=== PATIENT | female | born 1960 | race Caucasian/White ===

== ENCOUNTER → 2017-02-05 | Outpatient (CLI) | payer OTHER | LOC: CIMAGING 15:12 | PROVIDERS: ATTEND Family Medicine | DX: M17.0 Bilateral primary osteoarthritis of knee (principal) | CPT/HCPCS: 73562-PO ==

== ENCOUNTER → 2017-04-02 | Day surgery (SDC) | payer OTHER ==
[~2017-04-02] MED LIST: BUPIVACAINE 0.5% 30 ML SDV ONE; DEXAMETHASONE 4 MG/ML VIAL ONE; HYDROCODONE/APAP 5/325 TAB PO PRN; KETOROLAC 30 MG/1 ML SDV ONE; LIDOCAINE 2% 5 ML SDV ONE; LR 500 ML IV PRN; MIDAZOLAM 2 MG/2 ML VIAL IVP ONE; NALOXONE HCL 0.4 MG/ML INJ IVP PRN; ONDANSETRON 4 MG/2 ML VIAL ONE; PROMETHAZINE HCL 25 MG/ML INJ IVP PRN; PROPOFOL/EMULSION 500 MG/50 ML BOTTLE IV ONE; ceFAZolin 2 GM/DEXTROSE 100 ML IV ONE; epHEDrine SULFATE 10 MG/ML SYR ONE; fentaNYL 100 MCG/2 ML INJ IVP PRN; fentaNYL 100 MCG/2 ML INJ ONE
--- NOTE | 2017-04-02 07:39 | PDHPUP ---
History & Physical Update H&P update statement: This history and physical update is based on an assessment of the patient which was completed after admission or registration (within 24 hours), but prior to the surgery/procedure. H&P update: no change in patient's condition since H&P completed
--- NOTE | 2017-04-02 07:44 | POSTOPPROG ---
Post Op Note Date of Operation: 04/02/17 Surgeon: Gee Sargent Anesthesiologist: Nas Anesthesia: LMA Pre-op Diagnosis: Right Basal Thumb Arthritis Post-op Diagnosis: Same Indication: Pain and limited motion Procedure: Right thumb tendon interposition arthroplasty Findings: arthritis Inf/Abcess present in the surg proc area at time of surgery?: No Depth: Deep Incisional (Fascial) EBL: Minimal Total fluids administered: 700cc Complications: None Specimen(s): none
--- NOTE | 2017-04-02 08:11 | PDANEPAE ---
ANE Past Medical History - Cardiovascular History Hx Hypertension: No Hx Arrhythmias: No Hx Chest Pain: No Hx Coronary Artery / Peripheral Vascular Disease: No Hx CHF / Valvular Disease: No Hx Palpitations: No - Pulmonary History Hx COPD: No Hx Asthma/Reactive Airway Disease: Yes Hx Recent Upper Respiratory Infection: No Hx Oxygen in Use at Home: No Hx Sleep Apnea: No - Neurologic History Hx Cerebrovascular Accident: No Hx Seizures: No Hx Dementia: No - Neurological & Psychiatric Hx Neurological / Psychiatric History Comment: ADHD ANE Patient History - Allergies Allergies/Adverse Reactions: latex Allergy (Verified 04/02/17 07:48) - Home Medications Home Medications: Adderall 10 mg Tablet 04/02/17 [Last Taken 04/01/17 08:00] Bupropion HCl 04/02/17 [Last Taken 04/01/17 08:00] - NPO status NPO Since - Liquids (Date): 04/01/17 NPO Since - Liquids (Time): 21:30 NPO Since - Solids (Date): 04/01/17 NPO Since - Solids (Time): 21:30 ANE Labs/Vital Signs - Vital Signs Blood Pressure: 140/95 Heart Rate: 77 Respiratory Rate: 16 O2 Sat (%): 95 Height: 172.72 cm Weight: 84.368 kg ANE Physical Exam - Airway Neck exam: FROM Mallampati Score: Class 1 Mouth exam: normal dental/mouth exam - Pulmonary Pulmonary: no respiratory distress - Cardiovascular Cardiovascular: regular rate and rhythym - ASA Status ASA Status: II ANE Anesthesia Plan Anesthesia Plan: GA w LMA
--- NOTE | 2017-04-02 09:40 | POSTANESTH ---
Post Anesthetic Evaluation Cardiovascular Status: Normal, Stable Respiratory Status: Normal, Stable Level of Consciousness/Mental Status: Can Participate in Eval Pain Control: Adequate, Prn Tx Ordered Nausea/Vomiting Control: Adequate, Prn Tx Ordered Complications Possibly Related to Anesthesia: None Noted
[2017-04-02 10:09] VITALS: TEMP 97.9
[2017-04-02 10:17] VITALS: BP 118/70; RESP 16; O2SAT 97
[2017-04-02 10:33] VITALS: PULSE 66
--- NOTE | 2017-04-02 11:01 | GOP ---
[f rep st] OPERATIVE REPORT DATE OF OPERATION: SURGEON: Gee Sargent MD PREOPERATIVE DIAGNOSIS: Right basal thumb arthritis and also right palmar radial wrist ganglion cys t. POSTOPERATIVE DIAGNOSIS: Right basal thumb arthritis and also right palmar radial wrist ganglion cy st with ruptured volar collateral ligament. PROCEDURE PERFORMED: Right thumb trapezial excision, tendon interposition arthroplasty, volar colla teral ligament reconstruction and excision of right palmar radial wrist ganglion cyst. FINDINGS: INDICATIONS: This patient had pain on both the palmar as well as the radial aspect of the wrist and was found to have advanced arthritic change at the thumb carpometacarpal joint, but also had a palm ar radial wrist ganglion cyst which was interfering with motion and also was tender on palpation. I t was felt that excision of the ganglion cyst should be done at the same time. DESCRIPTION OF PROCEDURE: Under general anesthesia, the patient's right arm was prepped and draped in the usual fashion. Arm tourniquet applied at 250 mmHg. An L-shaped incision was made longitudin ally from the base of the thumb metacarpal back to the radial styloid, and then palmarly and ulnarly , the total length was 3 inches. Skin and subcutaneous tissue was reflected. Branches of the radia l nerve, the radial artery, associated veins and the extensor pollicis brevis and the abductor polli cis longus tendons were both mobilized and reflected. The periosteum and capsule were elevated from the triscaphoid joint and the carpometacarpal joint, and those joints were inspected. Triscaphoid joint was in pretty good condition with only minor chondromalacic change between the trapezium and s caphoid, but the interval between trapezium and base of thumb metacarpal showed advanced arthritic c hange with complete articular cartilage loss in a couple of areas and also bone spurs and beak area loose fragments. The trapezium was morcellized and excised with a bone rongeur. Beak area bone spu r and loose fragment were excised, and volar collateral ligament was found to be absent. The abduct or pollicis longus tendon was followed up to the distal 3rd of the forearm and was transected at the musculotendinous junction, leaving only 1 slip intact, and then the tendon was passed down to the b ase of the thumb metacarpal through an arthrotomy in the capsule around the FCR tendon and through t he dorsal capsule. This reconstructed the volar collateral ligament. Then the tendon slip was wove n back and forth through the capsule, and capsular tissue was imbricated into the space created by t rapezial excision, and once there was a nice pad of tendon and capsular tissue between the base of t he thumb metacarpal and the distal pole scaphoid, sutures were placed locking those tissues together . Periosteum was closed at the base of the thumb metacarpal and also capsule closed at the triscaph oid area. The stability of the thumb was tested and found to be excellent. Range of motion was smo oth with no crepitation. Attention was turned to the palmar radial aspect of the wrist, and with el evation of the skin and dissection of soft tissue, the ganglion cyst was identified. Radial artery was protected, and the cyst was excised from under the FCR tendon. This extended along the course o f the tendon for a short distance and entered the radiocarpal joint at the radioscaphoid interval. The cyst was typical in appearance and content and was not sent to Pathology for evaluation. No ot er pathology was identified in that area. The radioscaphoid interval appeared normal with smooth sl iding surface. The wound was irrigated profusely with body temperature saline. Skin closed with ho rizontal mattress sutures of 5-0 Prolene, and then a bulky soft pressure dressing was applied follow ed by fiberglass thumb spica splint held in place with an Jitendra bandage. She tolerated the procedure well. There were no complications. She was brought from the operating room to recovery room in goo d condition, given detailed postoperative instructions prior to discharge. A prescription for Perco cet and Keflex was provided. She had been given 1 g of Ancef prior to commencement of surgery. Fol lowup arrangements in the office for about a week postop for dressing and suture removal and cast ap plication for 3 additional weeks. /[id number]/MODL
== END | disposition home or self-care (01) ==
LOC: FSGY 07:32
PROVIDERS: ATTEND Specialist
PROC: 0PTM0ZZ Resection of Right Carpal, Open Approach (ICD-10-PCS; principal; 2017-04-02 07:30)
PROC: 0JR Subcutaneous Tissue and Fascia, Replacement (ICD-10-PCS; principal; 2017-04-02 07:30)
PROC: 0LB70ZZ Excision of Right Hand Tendon, Open Approach (ICD-10-PCS; principal; 2017-04-02 07:30)
DX: M18.11 Unilateral primary osteoarthritis of first carpometacarpal joint, right hand (principal); M67.431 Ganglion, right wrist; S63.641S Sprain of metacarpophalangeal joint of right thumb, sequela
CPT/HCPCS: J0690; J1100; J1885; J2250; J2405; J2704; J3010

== ENCOUNTER 2018-03-02 17:27 | Emergency (ER) | payer OTHER ==
[2018-03-02] MEDS ORDERED: NS 1,000 ML IV ONE (17:42)
--- NOTE | 2018-03-02 17:59 | EDPHY ---
HPI/HX/ROS/PE/MDM Narrative: CHIEF COMPLAINT: RUQ pain HPI: The patient is a 57 y/o female complaining of intermittent RUQ abdominal pain and belching for the last 3 days. She was treated for a bladder infection with Bactrim two weeks ago and felt good for the last week. Her abdominal pain returned on Friday, 3 days ago, and her PCP started her on Macrobid suspecting ongoing UTI. She continued to feel poor Friday night and followed up with her PCP on Friday who performed labs and sent her urine for culture, but she has not received those results yet. She describes her pain as "achy" in quality and primarily located in her RUQ, though at times she notices it on the left side as well. She feels like she is belching frequently and is nauseated mostly in the mornings. She cannot identify obvious aggravating or alleviating factors. She denies fever, vomiting, diarrhea, cough, flank pain. REVIEW OF SYSTEMS: Aside from elements discussed in the HPI, a comprehensive 10-point review of systems was reviewed and is negative. PMH: Asthma, eye surgery, endoscopy/colonoscopy ~2yrs ago for unclear reasons SOCIAL HISTORY: Lives in [place]. Employed. Single. PHYSICAL EXAM: General:Patient is alert, in no acute distress. ENT:Eyes are normal to inspection. ENT inspection normal. Neck: Normal inspection. Full range of motion. Respiratory:No respiratory distress. Breath sounds normal bilaterally. Cardiovascular: Regular rate and rhythm. Strong peripheral pulses. Normal cap refill. Abdomen:The abdomen has diffuse mild tenderness to palpation. There are no peritoneal signs. Back: Normal to inspection. No tenderness to palpation. Skin: Normal color. No rash. Warm and dry. Extremities: Normal appearance. Full range of motion. Neuro: Oriented x3. Normal motor function. Normal sensory function. ED Course: This is a 57 y/o female who presents with intermittent RUQ pain, nausea, and belching for the last 3 days in the setting of recent antibiotic treatment for a UTI. She has mild diffuse abdominal tenderness on exam and is afebrile here. Plan for IV, labs, abdominal US. Patient declined pain medication at this time. 1L IV NS ordered. US is negative. Labs unremarkable. Reassessed patient and discussed findings. Exam remains unchanged. She's unsure if she'd like to pursue CT imaging tonight. UA ordered. Patient has decided not to have an abdominal CT performed tonight. Her urine has been sent for culture. She plans to follow up with her PCP this week. Standard abdominal pain discharge instructions provided. She is comfortable with plan for discharge. - Data Points Imaging Results: Imaging Impressions Abdomen Ultrasound 03/02/18 18:38 Impression: Negative right upper quadrant ultrasound. Results called and discussed with Gee Hough MD on 03/02/2018 at 19:53. Imaging: Discussed imaging studies w/ call center representative Radiologist Laboratory Results: Laboratory Results 03/02/18 18:14 03/02/18 18:14 03/02/18 03/02/18 03/02/18 19:40 18:14 18:14 WBC 8.24 10^3/uL 10^3/uL (3.80-9.50) RBC 4.35 10^6/uL 10^6/uL (4.18-5.33) Hgb 12.7 g/dL g/dL (12.6-16.3) Hct 37.8 % L % (38.0-47.0) MCV 86.9 fL fL (81.5-99.8) MCH 29.2 pg pg (27.9-34.1) MCHC 33.6 g/dL g/dL (32.4-36.7) RDW 13.5 % % (11.5-15.2) Plt Count 342 10^3/uL 10^3/uL (150-400) MPV 8.9 fL fL (8.7-11.7) Neut % (Auto) 67.3 % % (39.3-74.2) Lymph % (Auto) 22.7 % % (15.0-45.0) [place] % (Auto) 8.0 % % (4.5-13.0) Eos % (Auto) 1.2 % % (0.6-7.6) Baso % (Auto) 0.6 % % (0.3-1.7) Nucleat RBC Rel Count 0.0 % % (0.0-0.2) Absolute Neuts (auto) 5.54 10^3/uL 10^3/uL (1.70-6.50) Absolute Lymphs (auto) 1.87 10^3/uL 10^3/uL (1.00-3.00) Absolute Monos (auto) 0.66 10^3/uL 10^3/uL (0.30-0.80) Absolute Eos (auto) 0.10 10^3/uL 10^3/uL (0.03-0.40) Absolute Basos (auto) 0.05 10^3/uL 10^3/uL (0.02-0.10) Absolute Nucleated RBC 0.00 10^3/uL 10^3/uL (0-0.01) Immature Gran % 0.2 % % (0.0-1.1) Immature Gran # 0.02 10^3/uL 10^3/uL (0.00-0.10) Sodium 138 mEq/L mEq/L (135-145) Potassium 4.0 mEq/L mEq/L (3.3-5.0) Chloride 105 mEq/L mEq/L (97-110) Carbon Dioxide 25 mEq/l mEq/l (22-31) Anion Gap 8 mEq/L mEq/L (8-16) BUN 14 mg/dL mg/dL (7-23) Creatinine 0.8 mg/dL mg/dL (0.6-1.0) Estimated GFR > 60 Glucose 92 mg/dL mg/dL (70-100) Calcium 9.0 mg/dL mg/dL (8.5-10.4) Total Bilirubin 0.3 mg/dL mg/dL (0.1-1.4) Conjugated Bilirubin 0.2 mg/dL mg/dL (0.0-0.5) Unconjugated Bilirubin 0.1 mg/dL mg/dL (0.0-1.1) AST 24 IU/L IU/L (14-46) ALT 35 IU/L IU/L (9-52) Alkaline Phosphatase 50 IU/L IU/L (38-126) Total Protein 6.4 g/dL g/dL (6.3-8.2) Albumin 3.7 g/dL g/dL (3.5-5.0) Lipase 89 IU/L IU/L (23-300) Urine Color SOCO Urine Appearance CLEAR Urine pH 7.0 (5.0-7.5) Ur Specific [place] 1.016 (1.002-1.030) Urine Protein NEGATIVE (NEGATIVE) Urine Ketones NEGATIVE (NEGATIVE) Urine Blood NEGATIVE (NEGATIVE) Urine Nitrate POSITIVE H (NEGATIVE) Urine Bilirubin NEGATIVE (NEGATIVE) Urine Urobilinogen 2.0 EU H EU (0.2-1.0) Ur Leukocyte Esterase NEGATIVE (NEGATIVE) Urine RBC 3-5 /hpf H /hpf (0-3) Urine WBC 1-3 /hpf /hpf (0-3) Ur Epithelial Cells TRACE /lpf /lpf (NONE-1+) Urine Bacteria TRACE /hpf H /hpf (NONE SEEN) Urine Mucus TRACE /lpf /lpf (NONE-1+) Urine Glucose NEGATIVE (NEGATIVE) Medications Given: Discontinued Medications Sodium Chloride (Ns) 1,000 mls @ 0 mls/hr IV EDNOW ONE; Wide Open PRN Reason: Protocol Stop: 03/02/18 17:43 Last Admin: 03/02/18 18:07 Dose: 1,000 mls General Initial Vital Signs: Initial Vital Signs Temperature (C) 36.7 C 03/02/18 17:31 Heart Rate 80 03/02/18 17:31 Respiratory Rate 18 03/02/18 17:31 Blood Pressure 152/79 H 03/02/18 17:31 O2 Sat (%) 95 03/02/18 17:31 O2 Delivery Mode Room Air Allergies/Adverse Reactions: latex Allergy (Verified 03/02/18 17:31) Home Medications: Medication Instructions Recorded Adderall 10 MG (*) 03/02/18 Macrobid 03/02/18 Venlafaxine 25MG (*) 03/02/18 Departure - Departure Disposition: Home, Routine, Self-Care Clinical Impression: Abdominal pain Qualifiers: Abdominal location: generalized Qualified Code(s): R10.84 - Generalized abdominal pain Condition: Good Instructions: Acute Abdominal Pain (DC) Additional Instructions: Sometimes we are unable to diagnose an obvious cause of abdominal pain in the Emergency Department. Because more serious conditions can be difficult to diagnose early in the course of their presentation, we ask that you return to the Emergency Department in 8-12 hours for a recheck if you are still having pain. This is necessary to exclude the development of a more serious condition such as appendicitis or other intra-abdominal emergency. In the event your pain markedly increases before that time or you develop intractable vomiting or fever return to the Emergency Department immediately. Otherwise, follow up with your primary care provider for reevaluation this week. Referrals: Gee Davis DO [Primary Care Provider] - As per Instructions Report Scribed for: Gee Hough Report Scribed by: Carol Wright Date of Report: 03/02/18 Time of Report: 17:59 Physician Review and Approval Statement: Portions of this note were transcribed by an ED scribe. I personally performed the history, physical exam, and medical decision making; and confirm the accuracy of the information in the transcribed note.
[2018-03-02 18:29] LABS: PLATELET COUNT 342 10^3/uL (150-400)
[2018-03-02 20:44] VITALS: BP 122/89
== END 2018-03-02 20:44 | disposition home or self-care (01) ==
LOC: MERGE 17:27
DX: R10.84 Generalized abdominal pain (principal); E86.9 Volume depletion, unspecified; J45.909 Unspecified asthma, uncomplicated; Z91.040 Latex allergy status

== ENCOUNTER → 2018-03-09 | Outpatient (CLI) | payer OTHER | LOC: FIMAGING 15:25 | PROVIDERS: ATTEND Orthopaedic Surgery | DX: Z01.818 Encounter for other preprocedural examination (principal); M25.461 Effusion, right knee; S83.011A Lateral subluxation of right patella, initial encounter ==

== ENCOUNTER 2018-04-01 07:15 | Observation (INO) | payer OTHER ==
--- NOTE | 2018-04-01 07:08 | PDHPUP ---
History & Physical Update H&P update statement: This history and physical update is based on an assessment of the patient which was completed after admission or registration (within 24 hours), but prior to the surgery/procedure. H&P update: H&P reviewed & patient examined, no change in patient's condition since H&P completed
[~2018-04-01 07:15] MED LIST changes: -BUPIVACAINE 0.5% 30 ML SDV ONE; -DEXAMETHASONE 4 MG/ML VIAL ONE; -HYDROCODONE/APAP 5/325 TAB PO PRN; -KETOROLAC 30 MG/1 ML SDV ONE; -LIDOCAINE 2% 5 ML SDV ONE; -LR 500 ML IV PRN; -MIDAZOLAM 2 MG/2 ML VIAL IVP ONE; -NALOXONE HCL 0.4 MG/ML INJ IVP PRN; -ONDANSETRON 4 MG/2 ML VIAL ONE; -PROMETHAZINE HCL 25 MG/ML INJ IVP PRN; -PROPOFOL/EMULSION 500 MG/50 ML BOTTLE IV ONE; +ROPIVACAINE 0.2% 80 MG, EPINEPHrine 0.2 MG, KETOROLAC TROMETHAMINE 30 MG in SYRINGE 0 ML IU ONE; +TRANEXAMIC ACID 3,000 MG in NS (SYRINGE) 50 ML IRR ONE; -ceFAZolin 2 GM/DEXTROSE 100 ML IV ONE; -epHEDrine SULFATE 10 MG/ML SYR ONE; -fentaNYL 100 MCG/2 ML INJ IVP PRN; -fentaNYL 100 MCG/2 ML INJ ONE
[2018-04-01] MEDS ORDERED: VANCOMYCIN 1 GM VIAL ONE (09:40)
[2018-04-01] MEDS ORDERED: TRANEXAMIC ACID 3,000 MG/50 ML BAG IRR ONE (09:40)
[2018-04-01] MEDS ORDERED: FAMOTIDINE 20 MG TAB PO ONE (10:20)
[2018-04-01] MEDS ORDERED: DEXAMETHASONE 4 MG/ML VIAL IVP ONE (10:20)
[2018-04-01] MEDS ORDERED: ceFAZolin 2 GM/DEXTROSE 100 ML IV ONE (10:20)
[2018-04-01] MEDS ORDERED: ACETAMINOPHEN 325 MG TAB PO ONE (10:20)
[2018-04-01] MEDS ORDERED: LR 1,000 ML IV ONE (10:23)
[2018-04-01] MEDS ORDERED: LIDOCAINE 1% 2 ML INJ ID PRN (10:23)
--- NOTE | 2018-04-01 10:23 | PDANEPAE ---
ANE History of Present Illness 57 year old female for right knee resurfacing. ANE Past Medical History - Cardiovascular History Hx Hypertension: No Hx Arrhythmias: No Hx Chest Pain: No Hx Coronary Artery / Peripheral Vascular Disease: No Hx CHF / Valvular Disease: No Hx Palpitations: No - Pulmonary History Hx COPD: No Hx Asthma/Reactive Airway Disease: Yes Hx Recent Upper Respiratory Infection: No Hx Oxygen in Use at Home: No Hx Sleep Apnea: No Sleep Apnea Screening Result - Last Documented: Positive Pulmonary History Comment: latex can triggers asthma, respiratory issues - Neurologic History Hx Cerebrovascular Accident: No Hx Seizures: No Hx Dementia: No - Endocrine History Hx Diabetes: No Hypothyroid: No Hyperthyroid: No Obesity: mild - Renal History Hx Renal Disorders: No - Liver History Hx Hepatic Disorders: No - Neurological & Psychiatric Hx Hx Neurological and Psychiatric Disorders: No Neurological / Psychiatric History Comment: ADHD - Cancer History Hx Cancer: No - Congenital Disorder History Hx Congenital Disorders: No - GI History Hx Gastrointestinal Disorders: Yes Gastrointestinal History Comment: hx hiatel hernia. diverticulitis. polyps - Other Health History Other Health History: polycystic ovaries - Chronic Pain History Chronic Pain: Yes (sciatica, neck injury) - Surgical History Prior Surgeries: right thumb ANE Review of Systems Review of systems is: negative Review of Systems: - Exercise capacity Exercise capacity: >=4 METS METS (RN): 4 METS ANE Patient History - Allergies Allergies/Adverse Reactions: gluten Allergy (Verified 03/09/18 15:41) Abdominal Cramping latex Allergy (Verified 03/09/18 14:53) Wheezing Milk Containing Products [dairy] Allergy (Verified 03/09/18 15:41) Abdominal Cramping - Home Medications Home medications: home medication list seen and reviewed Home Medications: Albuterol [Proventil Inhaler HFA (*)] 1 - 2 puffs IH DAILY PRN 02/24/18 [Last Taken 3 Months Ago ~12/30/17] Aspirin [Aspirin 325 mg (*)] 325 mg PO DAILY PRN 02/24/18 [Last Taken 1 Month Ago ~03/01/18] Calcium Carbonate [Tums 500MG (*)] 500 mg PO DAILY PRN 02/24/18 [Last Taken 3 Weeks Ago ~03/11/18] Ibuprofen [Motrin (*)] 200 mg PO DAILY PRN 02/24/18 [Last Taken 1 Week Ago ~] SUMAtriptan [Imitrex 50 MG (*)] 50 mg PO Q2H PRN 02/24/18 [Last Taken 11/30/17] Venlafaxine HCl [Venlafaxine 75MG (*)] 75 mg PO DAILY 02/24/18 [Last Taken 04/01 07:00] Vitamin B Complex [Vitamin B Complex (OTC)] 1 each PO DAILY 02/24/18 [Last Taken 3 Weeks Ago ~03/11/18] Amphet Asp and D/Amphet [Adderall 10 MG (*)] 10 mg PO DAILY PRN 03/02/18 [Last Taken 3 Weeks Ago ~03/11/18] - NPO status NPO Status: no food or drink >8 hours - Anes Hx Anes Hx: no prior problems - Smoking Hx Smoking Status: Never smoked Marijuana use: No - Alcohol Use Alcohol Use: None - Family Anes Hx Family Hx Anesthesia Complications: none ANE Labs/Vital Signs - Vital Signs Vital Signs: reviewed preoperatively; see RN documention for details Height: 172.72 cm Weight: 92.533 kg ANE Physical Exam - Airway Neck exam: FROM Mallampati Score: Class 2 Mouth exam: normal dental/mouth exam - Pulmonary Pulmonary: no respiratory distress - Cardiovascular Cardiovascular: regular rate and rhythym - ASA Status ASA Status: II ANE Anesthesia Plan Anesthesia Plan: MAC, spinal Regional Anesthesia: adductor canal FNB
[2018-04-01] MEDS ORDERED: MIDAZOLAM 2 MG/2 ML VIAL IVP ONE (11:38)
[2018-04-01] MEDS ORDERED: MIDAZOLAM 2 MG/2 ML VIAL ONE (11:40)
[2018-04-01] MEDS ORDERED: PROPOFOL/EMULSION 500 MG/50 ML BOTTLE IV ONE ×2 (11:42→12:32)
[2018-04-01] MEDS ORDERED: ROPIVACAINE HCL 150 MG/30 ML INJ ONE (12:03)
[2018-04-01] MEDS ORDERED: DEXAMETHASONE 4 MG/ML VIAL ONE (12:03)
[2018-04-01] MEDS ORDERED: ONDANSETRON 4 MG/2 ML VIAL ONE (12:03)
[2018-04-01] MEDS ORDERED: HYDROmorphONE/DILAUDID 1 MG/ML INJ IVP PRN (12:35)
[2018-04-01] MEDS ORDERED: ONDANSETRON 4 MG/2 ML VIAL IVP PRN ×2 (12:35→12:59)
[2018-04-01] MEDS ORDERED: fentaNYL 100 MCG/2 ML INJ IVP PRN (12:35)
[2018-04-01] MEDS ORDERED: PROMETHAZINE HCL 25 MG/ML INJ IVP PRN ×2 (12:35→12:59)
[2018-04-01] MEDS ORDERED: PHENYLEPHRINE HCL 100 MCG/ML SYR IVP PRN (12:35)
[2018-04-01] MEDS ORDERED: NALOXONE HCL 0.4 MG/ML INJ IVP PRN (12:35)
[2018-04-01] MEDS ORDERED: oxyCODONE IR 5 MG TAB PO PRN (12:35)
[2018-04-01] MEDS ORDERED: ACETAMINOPHEN 500 MG TAB PO PRN (12:35)
[2018-04-01] MEDS ORDERED: LR 500 ML IV PRN (12:35)
[2018-04-01] MEDS ORDERED: MAGNESIUM HYDROXIDE 30 ML UDCUP PO PRN (12:59)
[2018-04-01] MEDS ORDERED: TEMAZEPAM 15 MG CAP PO PRN (12:59)
[2018-04-01] MEDS ORDERED: DIPHENOXYLATE/ATROPINE LOMOTIL 1 TAB PO PRN (12:59)
[2018-04-01] MEDS ORDERED: METOCLOPRAMIDE 10 MG/2 ML VIAL IVP PRN (12:59)
[2018-04-01] MEDS ORDERED: CYCLOBENZAPRINE 10 MG TAB PO PRN (12:59)
[2018-04-01] MEDS ORDERED: PROMETHAZINE HCL 25 MG SUPPR PR PRN (12:59)
[2018-04-01] MEDS ORDERED: BISACODYL 10 MG SUPP PR PRN (12:59)
[2018-04-01] MEDS ORDERED: LACTULOSE 20 GM/30 ML UDCUP PO PRN (12:59)
[2018-04-01] MEDS ORDERED: POLYETHYLENE GLYCOL 3350 17 GM PKT PO PRN (12:59)
[2018-04-01] MEDS ORDERED: ONDANSETRON DISINTEGRATING 4 MG TAB PO PRN (12:59)
[2018-04-01] MEDS ORDERED: diphenhydrAMINE 25 MG CAP PO PRN (12:59)
--- NOTE | 2018-04-01 12:59 | POSTOPPROG ---
Post Op Note Date of Operation: 04/01/18 Surgeon: Francisco Javier Ernst Sample Paster: jo ernst Anesthesiologist: dr. everett Anesthesia: Spinal, Other (Specify) (adductor canal block) Pre-op Diagnosis: right knee OA Post-op Diagnosis: same Indication: right knee pain due to OA Procedure: R PF partial knee arthroplasty withrobotic assist Findings: severe knee OA Inf/Abcess present in the surg proc area at time of surgery?: No EBL: Minimal
[2018-04-01] MEDS ORDERED: LR 1,000 ML IV SCH (13:00)
[2018-04-01] MEDS ORDERED: ADDERALL 10 MG TAB PO PRN (13:01)
[2018-04-01] MEDS ORDERED: SUMAtriptan 50 MG TAB PO PRN (13:01)
[2018-04-01] MEDS ORDERED: ALBUTEROL 60 PUFFS/8 GM MDI IH PRN (14:45)
[2018-04-01] MEDS ORDERED: WARFARIN SODIUM 5 MG TAB PO SCH (16:00)
[2018-04-01] MEDS: ACETAMINOPHEN 325 MG TAB PO SCH ×2 (17:06→23:26)
--- NOTE | 2018-04-01 18:30 | POSTANESTH ---
Post Anesthetic Evaluation Cardiovascular Status: Normal, Stable, Similar to Pre-Op Cond Respiratory Status: Normal, Stable, Similar to Pre-op Cond. Level of Consciousness/Mental Status: Can Participate in Eval, Alert and Oriented Pain Control: Adequate, Prn Tx Ordered Nausea/Vomiting Control: Adequate, Prn Tx Ordered Complications Possibly Related to Anesthesia: None Noted
[2018-04-01] MEDS: SENNOSIDES/DOCUSATE SODIUM TAB PO SCH (21:48)
[2018-04-01] MEDS: FAMOTIDINE 20 MG TAB PO SCH (21:48)
[2018-04-01] MEDS: ceFAZolin 2 GM/DEXTROSE 100 ML IV SCH (21:48)
[2018-04-02] MEDS: oxyCODONE IR 5 MG TAB PO PRN ×3 (01:54→09:20)
[2018-04-02] MEDS: ceFAZolin 2 GM/DEXTROSE 100 ML IV SCH (04:44)
[2018-04-02] MEDS: ACETAMINOPHEN 325 MG TAB PO SCH (05:16)
[2018-04-02 05:20] LABS: INR 1.13 (0.83-1.16); PROTIME(PATIENT) 14.7 SEC (12.0-15.0)
[2018-04-02 07:54] VITALS: BP 127/66
[2018-04-02] MEDS ORDERED: VENLAFAXINE HCL 75 MG TAB PO SCH (09:00)
[2018-04-02] MEDS ORDERED: ENOXAPARIN 40 MG/0.4 ML SYR SC SCH (09:00)
[2018-04-02] MEDS: SENNOSIDES/DOCUSATE SODIUM TAB PO SCH (09:19)
[2018-04-02] MEDS: FAMOTIDINE 20 MG TAB PO SCH (09:19)
--- NOTE | 2018-04-07 15:46 | GOP ---
[f rep st] OPERATIVE REPORT DATE OF OPERATION: 04/01/2018 SURGEON: Geneva Oconnell MD TIRE CORD WEAVER: Farzana Oconnell, VERENA. ANESTHESIA: Spinal. PREOPERATIVE DIAGNOSIS: Right knee osteoarthritis. POSTOPERATIVE DIAGNOSIS: Right knee osteoarthritis. PROCEDURE PERFORMED: Right patellofemoral arthroplasty with computer navigation robotic assist. FINDINGS: ESTIMATED BLOOD LOSS: 30 cc. INDICATIONS: Patient is a 57-year-old female with right severe patellofemoral osteoarthritis. She has failed nonoperative measures. Risks and benefits were discussed with the patient. Informed consent was obtained. DESCRIPTION OF PROCEDURE: Patient was identified in the preoperative holding area. Her right lower extremity was marked. She was then brought back to the operating room. After induction of anesthesia, patient was prepped and draped in the usual sterile fashion. A time-out was taken for patient, laterality, procedures, allergies, antibiotic status, and implant availability. We elevated the tourniquet and made our incision, and made our arthrotomy, avoiding the meniscus. Identified the joint capsule. We sized the patella. This was sized to be a size 35. We placed optical trackers and mapped out the femur. Sized this to a size 5. Burred footprint for a size 5, cemented into a size 5 trochlear component for the femur. Cemented the size 35 mm patellar button. Incision was copiously irrigated and closed in layers. The patient was awakened and brought to PACU in good condition with a well-perfused limb. The plan is for the patient to weight bear as tolerated. Admitted to the orthopedic service. /[id number]/MODL MTDD
--- NOTE | 2018-04-10 10:31 | GDS ---
[f rep st] DISCHARGE SUMMARY ADMISSION DIAGNOSIS: Right knee osteoarthritis. DISCHARGE DIAGNOSIS: Right knee osteoarthritis. PROCEDURE: Right partial knee arthroplasty, patellofemoral with robotic-assist. VTE PROPHYLAXIS: Recommend aspirin daily for 4 weeks. BRIEF DESCRIPTION OF HOSPITAL STAY: Patient was admitted for an elective joint arthroplasty. The pa argenis tolerated the procedure well and has passed physical therapy. The patient was given appropriat e antibiotic prophylaxis and venous thromboembolism prophylaxis. The patient's pain was well control led on oral pain medication, patient was holding down food, and had urinated. Decision was made to d ischarge the patient. The patient was given post-operative prescriptions pre-operatively. PLAN: To follow up with Dr. Oconnell at [facility] in 2 to 3 weeks. /[id number]/MODL
== END 2018-04-02 10:51 | disposition home or self-care (01) ==
LOC: F3N 10:04
PROVIDERS: ADMIT Orthopaedic Surgery; ATTEND Orthopaedic Surgery
DX: M17.11 Unilateral primary osteoarthritis, right knee (principal)
CPT/HCPCS: 27438; 73560; 97116; 97161; 97165; G0378; C1713; J0171; J0690; J1100; J1650; J1885; J2250; J2405; J2704; J2795; J3370

== ENCOUNTER → 2018-07-28 | Outpatient (CLI) | payer OTHER | LOC: FIMAGING 14:53 | PROVIDERS: ATTEND Orthopaedic Surgery | DX: Z01.818 Encounter for other preprocedural examination (principal); M17.9 Osteoarthritis of knee, unspecified ==

== ENCOUNTER 2018-08-19 06:06 | Observation (INO) | payer OTHER ==
[2018-08-19] MEDS ORDERED: DEXAMETHASONE 4 MG/ML VIAL IVP ONE (06:19)
[2018-08-19] MEDS ORDERED: FAMOTIDINE 20 MG TAB PO ONE (06:19)
[2018-08-19] MEDS ORDERED: ceFAZolin 2 GM/DEXTROSE 100 ML IV ONE (06:19)
[2018-08-19] MEDS ORDERED: ACETAMINOPHEN 325 MG TAB PO ONE (06:19)
[2018-08-19] MEDS ORDERED: LIDOCAINE 1% 2 ML INJ ID PRN (06:20)
[2018-08-19] MEDS ORDERED: LR 1,000 ML IV ONE (06:20)
[2018-08-19] MEDS ORDERED: TRANEXAMIC ACID 3,000 MG/50 ML BAG IRR ONE (06:29)
[2018-08-19] MEDS ORDERED: VANCOMYCIN 1 GM VIAL ONE (06:30)
[2018-08-19] MEDS ORDERED: MIDAZOLAM 2 MG/2 ML VIAL IVP ONE (06:48)
--- NOTE | 2018-08-19 06:48 | PDANEPAE ---
ANE History of Present Illness Left knee pain, here for resurfacing with robotic assist ANE Past Medical History - Cardiovascular History Hx Hypertension: No Hx Arrhythmias: No Hx Chest Pain: No Hx Coronary Artery / Peripheral Vascular Disease: No Hx CHF / Valvular Disease: No Hx Palpitations: No - Pulmonary History Hx COPD: No Hx Asthma/Reactive Airway Disease: Yes Hx Recent Upper Respiratory Infection: No Hx Oxygen in Use at Home: No Hx Sleep Apnea: Yes Sleep Apnea Screening Result - Last Documented: Positive Pulmonary History Comment: latex can triggers asthma, respiratory issues - Neurologic History Hx Cerebrovascular Accident: No Hx Seizures: No Hx Dementia: No - Endocrine History Hx Diabetes: No - Renal History Hx Renal Disorders: No Renal History Comment: REMOTE UTI'S - Liver History Hx Hepatic Disorders: No - Neurological & Psychiatric Hx Hx Neurological and Psychiatric Disorders: No Neurological / Psychiatric History Comment: ADHD - Cancer History Hx Cancer: No - Congenital Disorder History Hx Congenital Disorders: No - GI History Hx Gastrointestinal Disorders: Yes Gastrointestinal History Comment: hiatel hernia. diverticulitis. COLON polyps - Other Health History Other Health History: OSTEOARTHRITIS. polycystic ovaries - Chronic Pain History Chronic Pain: Yes (LT KNEE) - Surgical History Prior Surgeries: RT KNEE RESURFACING 04/18. right thumb LIGAMENT RECONSTRUCTION. TUBAL LIGATION ANE Review of Systems Review of Systems: - Exercise capacity METS (RN): 4 METS ANE Patient History - Allergies Allergies/Adverse Reactions: gluten Allergy (Verified 03/09/18 15:41) Abdominal Cramping latex Allergy (Verified 03/09/18 14:53) Wheezing Milk Containing Products [dairy] Allergy (Verified 03/09/18 15:41) Abdominal Cramping - Home Medications Home Medications: Albuterol [Proventil Inhaler HFA (*)] 1 - 2 puffs IH DAILY PRN 02/24/18 [Last Taken 3 Months Ago ~12/30/17] SUMAtriptan [Imitrex 50 MG (*)] 50 mg PO Q2H PRN 02/24/18 [Last Taken 11/30/17] Adapalene [Differin] 1 lucy TP DAILY 07/20/18 [Last Taken Unknown] Beclomethasone Qvar 80 [Qvar 80 Redihaler (*)] 1 inh IH BID PRN 07/20/18 [Last Taken Unknown] DAPSONE [ACZONE] 1 lucy TP HS 07/20/18 [Last Taken Unknown] Fluocinonide 1 lucy TP DAILY PRN 07/20/18 [Last Taken Unknown] Herbals/Supplements -Info Only 1 each PO DAILY 07/20/18 [Last Taken Unknown] Ibuprofen [Motrin (*)] 200 mg PO DAILY PRN 07/20/18 [Last Taken Unknown] Ketoconazole 2% [Nizoral Shampoo (*)] 1 lucy TP Q14D 07/20/18 [Last Taken Unknown ] Propylene Glycol/Peg 400/Pf [Systane Ultra 0.4-0.3% Eye Drp] 1 each OP DAILY PRN 07/20/18 [Last Taken Unknown] Venlafaxine Xr [Effexor Xr 75MG (*)] 75 mg PO DAILY 07/20/18 [Last Taken Unknown ] buPROPion XL [Wellbutrin Xl] 150 mg PO DAILY 07/20/18 [Last Taken Unknown] - Smoking Hx Smoking Status: Never smoked - Family Anes Hx Family Hx Anesthesia Complications: none ANE Labs/Vital Signs - Vital Signs Height: 172.72 cm Weight: 91.626 kg ANE Physical Exam - Airway Neck exam: FROM Mallampati Score: Class 3 Mouth exam: normal dental/mouth exam - Pulmonary Pulmonary: no respiratory distress - Cardiovascular Cardiovascular: regular rate and rhythym - ASA Status ASA Status: III ANE Anesthesia Plan Anesthesia Plan: GA with mask, spinal Total IV Anesthesia: Yes
[2018-08-19] MEDS ORDERED: DEXAMETHASONE 4 MG/ML VIAL ONE (06:54)
[2018-08-19] MEDS ORDERED: PROPOFOL/EMULSION 500 MG/50 ML BOTTLE IV ONE (06:54)
[2018-08-19] MEDS ORDERED: LIDOCAINE 2% 5 ML SDV ONE (06:54)
[2018-08-19] MEDS ORDERED: fentaNYL 100 MCG/2 ML INJ ONE (06:54)
[2018-08-19] MEDS ORDERED: ONDANSETRON 4 MG/2 ML VIAL ONE (06:54)
[2018-08-19] MEDS ORDERED: BUPIVACAINE/DEXTROSE 7.5MG/ML 2 ML SPINAL AMP SP ONE (06:54)
[2018-08-19] MEDS ORDERED: PHENYLEPHRINE 10 MG/ML SDV ONE (07:43)
[2018-08-19] MEDS ORDERED: ROPIVACAINE HCL 150 MG/30 ML INJ ONE (07:43)
[2018-08-19] MEDS ORDERED: HYDROmorphONE/DILAUDID 2 MG/ML INJ IVP PRN (08:14)
[2018-08-19] MEDS ORDERED: ALBUTEROL 3 ML DEYVIAL IH PRN (08:14)
[2018-08-19] MEDS ORDERED: oxyCODONE IR 5 MG TAB PO PRN (08:14)
[2018-08-19] MEDS ORDERED: LR 500 ML IV PRN (08:14)
[2018-08-19] MEDS ORDERED: NALOXONE HCL 0.4 MG/ML INJ IVP PRN (08:14)
[2018-08-19] MEDS ORDERED: ACETAMINOPHEN 500 MG TAB PO PRN (08:14)
[2018-08-19] MEDS ORDERED: fentaNYL 100 MCG/2 ML INJ IVP PRN (08:14)
[2018-08-19] MEDS ORDERED: PROMETHAZINE HCL 25 MG/ML INJ IVP PRN ×2 (08:14→08:19)
[2018-08-19] MEDS ORDERED: MEPERIDINE 25 MG/0.5 ML AMP IVP PRN (08:14)
[2018-08-19] MEDS ORDERED: METOCLOPRAMIDE 10 MG/2 ML VIAL IVP PRN (08:19)
[2018-08-19] MEDS ORDERED: MAGNESIUM HYDROXIDE 30 ML UDCUP PO PRN (08:19)
[2018-08-19] MEDS ORDERED: CYCLOBENZAPRINE 10 MG TAB PO PRN (08:19)
[2018-08-19] MEDS ORDERED: ONDANSETRON 4 MG/2 ML VIAL IVP PRN (08:19)
[2018-08-19] MEDS ORDERED: ONDANSETRON DISINTEGRATING 4 MG TAB PO PRN (08:19)
[2018-08-19] MEDS ORDERED: BISACODYL 10 MG SUPP PR PRN (08:19)
[2018-08-19] MEDS ORDERED: DIPHENOXYLATE/ATROPINE LOMOTIL 1 TAB PO PRN (08:19)
[2018-08-19] MEDS ORDERED: TEMAZEPAM 15 MG CAP PO PRN (08:19)
[2018-08-19] MEDS ORDERED: PROMETHAZINE HCL 25 MG SUPPR PR PRN (08:19)
[2018-08-19] MEDS ORDERED: LACTULOSE 20 GM/30 ML UDCUP PO PRN (08:19)
[2018-08-19] MEDS ORDERED: diphenhydrAMINE 25 MG CAP PO PRN (08:19)
--- NOTE | 2018-08-19 08:19 | POSTOPPROG ---
Post Op Note Date of Operation: 08/19/18 Surgeon: Francisco Javier Oconnell State Director: Farzana Oconnell PA-C Anesthesiologist: Dr. Palacios Anesthesia: Spinal (adductor canal block), Other (Specify) Pre-op Diagnosis: Left knee OA Post-op Diagnosis: Same Indication: left knee pain Procedure: left partial knee PF Findings: severe left knee PF OA Inf/Abcess present in the surg proc area at time of surgery?: No EBL: 50-100
[2018-08-19] MEDS ORDERED: BECLOMETHASONE QVAR IH PRN (08:23)
[2018-08-19] MEDS ORDERED: SUMAtriptan 50 MG TAB PO PRN (08:23)
[2018-08-19] MEDS ORDERED: LR 1,000 ML IV SCH (08:30)
--- NOTE | 2018-08-19 08:35 | POSTANESTH ---
Post Anesthetic Evaluation Cardiovascular Status: Normal, Stable, Tx Over/Under Hydration Level of Consciousness/Mental Status: Can Participate in Eval Pain Control: Adequate, Prn Tx Ordered Nausea/Vomiting Control: Adequate, Prn Tx Ordered Complications Possibly Related to Anesthesia: None Noted (moving bilat lower extrem a little, Ac w/ocomp)
[2018-08-19] MEDS: SENNOSIDES/DOCUSATE SODIUM TAB PO SCH ×2 (09:50→20:09)
[2018-08-19] MEDS: VENLAFAXINE XR 75 MG CAP PO SCH (09:50)
[2018-08-19] MEDS: buPROPion XL 150 MG TAB PO SCH (09:51)
[2018-08-19] MEDS ORDERED: ALBUTEROL 60 PUFFS/8 GM MDI IH PRN (10:00)
[2018-08-19] MEDS: ACETAMINOPHEN 325 MG TAB PO SCH ×3 (12:11→23:59)
[2018-08-19] MEDS: ceFAZolin 2 GM/DEXTROSE 100 ML IV SCH ×2 (15:27→23:58)
[2018-08-19] MEDS ORDERED: WARFARIN SODIUM 5 MG TAB PO SCH (16:00)
[2018-08-19] MEDS: oxyCODONE IR 5 MG TAB PO PRN ×2 (16:02→20:09)
[2018-08-19] MEDS: POLYETHYLENE GLYCOL 3350 17 GM PKT PO PRN (17:27)
[2018-08-19] MEDS: FAMOTIDINE 20 MG TAB PO SCH (20:08)
[2018-08-20 04:59] LABS: INR 1.07 (0.83-1.16); PROTIME(PATIENT) 14.1 SEC (12.0-15.0)
[2018-08-20] MEDS: ACETAMINOPHEN 325 MG TAB PO SCH (05:23)
[2018-08-20 07:58] VITALS: BP 120/77
[2018-08-20] MEDS ORDERED: ENOXAPARIN 40 MG/0.4 ML SYR SC SCH (09:00)
[2018-08-20] MEDS: SENNOSIDES/DOCUSATE SODIUM TAB PO SCH (09:02)
[2018-08-20] MEDS: buPROPion XL 150 MG TAB PO SCH (09:03)
[2018-08-20] MEDS: FAMOTIDINE 20 MG TAB PO SCH (09:03)
[2018-08-20] MEDS: VENLAFAXINE XR 75 MG CAP PO SCH (09:03)
[2018-08-20] MEDS: oxyCODONE IR 5 MG TAB PO PRN (09:07)
[2018-08-20] MEDS: POLYETHYLENE GLYCOL 3350 17 GM PKT PO PRN (09:07)
--- NOTE | 2018-08-20 09:21 | ASMTLACE ---
LACE Length of stay for Answers: 1 day current admission Acuity / Level of Answers: No Care: Did the patient have an inpatient admission? Comorbidities - select Answers: Opioid dependence all that apply / Chronic pain Other Notes: Hx of DVT # of Emergency department Answers: 1-2 visits in the last 6 months Score: 7 Date Signed: 08/20/2018 09:21 AM Electronically Signed By:Gloria Bailey RN
--- NOTE | 2018-08-20 09:28 | ASDISCHSUM ---
Discharge Information Plan Status:Home with No Needs Medically Cleared to Leave:08/19/2018 Discharge Date:08/19/2018 CM D/C Disposition:Home, Routine, Self-Care ADT D/C Disposition:Home, Routine, Self-Care Projected Discharge Date:08/19/2018 Transportation at D/C: Discharge Delay Reason: Follow-Up Date:08/19/2018 Discharge Slot: Final Diagnosis: Placement Information Patient Contact Information Contact Name:ELICIA Relationship:Mother Address: City: [facility] Phone: [facility]/Zip Code: Email: Financial Information Financial Class:HMO and PPO Plans Primary Plan Desc:[employer] Primary Plan Number:[id number] Secondary Plan Desc: Secondary Plan Number: Assessment Information LACE LACE Length of stay for Answers: 1 day current admission Acuity / Level of Answers: No Care: Did the patient have an inpatient admission? Comorbidities - select Answers: Opioid dependence all that apply / Chronic pain Other Notes: Hx of DVT # of Emergency department Answers: 1-2 visits in the last 6 months Score: 7 Date Signed: 08/20/2018 09:21 AM Electronically Signed By:Gloria Bailey RN Case Management Discharge Plan Note Case Management Discharge Discharge Order Complete? Answers: Yes Patient to Obtain Answers: via Family Medications Transportation Arranged Answers: Family/Friends Discharge Comments Notes: 08/20/2018 Case Management Note PT recommending outpatient rehab. No other case management d/c needs identified d/t pt age, employment status and family supports. Case Management d/c poc: home with follow up as directed. Date Signed: 08/20/2018 09:27 AM Electronically Signed By:Gloria Bailey RN Intervention Information
--- NOTE | 2018-08-20 13:16 | SOAPPROG ---
SOAP Progress Note Assessment/Plan: Assessment: Patient is doing well POD 1 s/p L PF PKA Pain management: pain is well controlled on oral pain meds. VTE ppx: recommend coumadin and lovenox, cont FADI and SCDs Anemia: level is expected initially postop. Asymptomatic. Continue to monitor D/c planning: Patient has done better than anticipated and would like to be discharged to home today. Patient must be released from PT before discharge to home. Plan: 08/20/18 13:14 Subjective: patient is doing well ,denies SOB ,chest pain and N/V Objective: Vital Signs Temp Pulse Resp BP Pulse Ox 36.5 C 76 16 120/77 95 08/20/18 07:57 08/20/18 07:57 08/20/18 07:57 08/20/18 07:57 08/20/18 07:57 Laboratory Results 08/20/18 04:26 08/19/18 08/20/18 08/21/18 05:59 05:59 05:59 Intake Total 1650 Output Total 2250 100 Balance -600 -100 PT 14.1 SEC (12.0-15.0) 08/20/18 04:26 INR 1.07 (0.83-1.16) 08/20/18 04:26 LLE: incision dressing is clean and dry, NVI, +pf/df ICD10 Worksheet Patient Problems: Problems Problem Status Onset Primary localized osteoarthritis of left knee Acute Primary localized osteoarthritis of right knee Acute
--- NOTE | 2018-08-23 20:24 | GOP ---
DATE OF OPERATION: 08/19/2018 SURGEON: Geneva Oconnell MD ELIGIBILITY ANALYST: Farzana Oconnell, VERENA ANESTHESIA: Spinal. PREOPERATIVE DIAGNOSIS: Left knee osteoarthritis. POSTOPERATIVE DIAGNOSIS: Left knee osteoarthritis. PROCEDURE PERFORMED: Left patellofemoral arthroplasty with computer navigation, robotic assist. FINDINGS: ESTIMATED BLOOD LOSS: 30 cc. INDICATIONS: The patient is a 57-year-old female who had severe left patellofemoral osteoarthritis a nd has failed nonoperative measures. The risks and benefits of surgical intervention were explained to the patient and informed consent was obtained. DESCRIPTION OF PROCEDURE: The patient was identified in the preoperative holding area. Her left upp er extremity was marked. She was then brought back to the operating room. After induction of anesth esia, a nonsterile tourniquet was placed on her left upper thigh. She was then prepped and draped in usual sterile fashion. A time-out was taken confirming patient and laterality of the procedure, all ergies and antibiotic status. We then proceeded to place pins into the femur. The tourniquet was in flated. We then made our medial parapatellar arthrotomy, taking care to avoid cutting into the media l meniscus. We identified the patellofemoral joint. The patella was cut freehand. 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 We then mapped out the landmarks of the femur, brought in a marcelo to marcelo the footprint for a size 5 trochlear component. The patellar component was a size 32 . The trial components tracked well and they were removed. The incision was copiously irrigated. We then cemented the components in place. The patient's incision was closed in layers and she was brou ght to the PACU in good condition with a well-perfused limb. The plan is to admit the patient to Orthopedics. /[id number]/MODL
== END 2018-08-20 10:14 | disposition home or self-care (01) ==
LOC: F3N 06:06
PROVIDERS: ADMIT Orthopaedic Surgery; ATTEND Orthopaedic Surgery
PROC: 0QQF0ZZ Repair Left Patella, Open Approach (ICD-10-PCS; principal; 2018-08-19 07:15)
PROC: 0QRF0JZ Replacement of Left Patella with Synthetic Substitute, Open Approach (ICD-10-PCS; principal; 2018-08-19 07:15)
DX: M17.12 Unilateral primary osteoarthritis, left knee (principal)
CPT/HCPCS: 27438; 73560; 97116; 97161; 97530; G0378; C1713; J0171; J0690; J1100; J1650; J1885; J2250; J2370; J2405; J2704; J2795; J3010; J3370